=== PATIENT | female | born 1985 | race Caucasian/White ===

== ENCOUNTER 2018-03-25 01:44 | Emergency (ER) | END 2018-03-25 07:00 | disposition home or self-care (01) ==

== ENCOUNTER 2019-02-11 17:53 | Emergency (ER) | payer BC ==
[~2019-02-11] VITALS: Ht 160 cm; Wt 75.7 kg
[~2019-02-11 17:53] MED LIST: IBUP-1542 PO
[2019-02-11 18:05] VITALS: Ht 160 cm; Wt 75.7 kg
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
[2019-02-11] MEDS ORDERED: LORAZEPAM 1 MG TAB PO ONE (19:00)
[2019-02-11] MEDS ORDERED: IBUPROFEN 600 MG TAB PO ONE (19:00)
[2019-02-11] MEDS ORDERED: LORA-441 PO (19:03)
[2019-02-11] MEDS ORDERED: IBUP-1542 PO (19:05)
[2019-02-11 19:26] VITALS: BP 144/95; PULSE 81; RESP 17
== END 2019-02-11 19:26 | disposition home or self-care (01) ==
LOC: FTE 17:53
DX: M54.2 Cervicalgia (principal)
CPT/HCPCS: 99283